=== PATIENT | female | born 1995 | race Caucasian/White ===

== ENCOUNTER 2017-02-03 07:53 | Inpatient (IN) | payer OTHER ==
[~2017-02-03] VITALS: Ht 162.6 cm; Wt 82.1 kg
[~2017-02-03 07:53] MED LIST: PREN1TAB80 PO; RINGERS SOLUTION,LACTATED 1,000 ML IV ONE
[2017-02-03] MEDS ORDERED: CITRIC ACID/SODIUM CITRATE 30 ML SOLUTION UDCUP PO ONE (08:00)
[2017-02-03] MEDS ORDERED: METOCLOPRAMIDE HCL 5 MG/ML 2 ML VIAL IVP ONE (08:00)
[2017-02-03 08:24] VITALS: BP 119/74
[2017-02-03 08:32] LABS: BASOPHILS % (AUTO) 0.2 % (0.0-2.0); EOSINOPHILS % (AUTO) 0.1 % (1.0-6.0); HEMOGLOBIN 13.7 g/dL (12.0-16.0); LYMPHOCYTES # (AUTO) 1.7 K/uL (1.0-4.8); LYMPHOCYTES % (AUTO) 14.9 % (22.0-44.0); MEAN CORPUSCULAR HGB CONC 33.4 G/dL (31.0-37.0); MEAN CORPUSCULAR VOLUME 96 fL (80-100); MONOCYTES # (AUTO) 0.6 K/uL (0.1-1.0); MONOCYTES % (AUTO) 5.1 % (2.0-9.0); NEUTROPHILS # (AUTO) 8.9 K/uL (1.8-7.7); NEUTROPHILS % (AUTO) 79.7 % (40.0-70.0); PLATELET COUNT (AUTO) 163 K/uL (150-450); RED BLOOD CELL COUNT(AUTO) 4.28 MIL/uL (4.00-5.20); RED CELL DISTRIBUTION WIDTH 12.8 % (11.5-14.5); WHITE BLOOD COUNT (AUTO) 11.2 K/uL (4.5-11.0)
[2017-02-03] MEDS ORDERED: CeFAZolin 2 GM/DEXTROSE 50 ML IV ONE (10:32)
[2017-02-03] MEDS ORDERED: MORPHINE SULFATE/PF 0.5 MG/ML 10 ML AMP ONE (10:33)
[2017-02-03] MEDS ORDERED: FentaNYL CITRATE-PF 100 MCG/2 ML VIAL ONE (10:33)
[2017-02-03] MEDS ORDERED: RINGERS SOLUTION,LACTATED 1,000 ML IV ONE (10:34)
[2017-02-03] MEDS ORDERED: ACETAMINOPHEN/CODEINE 300-30 MG TABLET PO PRN ×2 (13:00)
[2017-02-03] MEDS ORDERED: LANOLIN 7 GM OINTMENT TP PRN (13:00)
[2017-02-03] MEDS ORDERED: NALBUPHINE HCL 10 MG/ML VIAL IVP PRN ×3 (13:30)
[2017-02-03] MEDS ORDERED: DiphenhydrAMINE HCL 50 MG/ML VIAL IVP PRN ×2 (13:30)
[2017-02-03] MEDS ORDERED: ONDANSETRON HCL 4 MG/2 ML VIAL IVP PRN ×2 (13:30)
[2017-02-03] MEDS ORDERED: FentaNYL CITRATE-PF 100 MCG/2 ML VIAL IVP PRN ×4 (13:30)
[2017-02-03] MEDS ORDERED: ACETAMINOPHEN 1000 MG/ISO-OSM 100 ML IV PRN (13:30)
[2017-02-03] MEDS ORDERED: NALOXONE HCL 0.4 MG/ML VIAL IVP PRN (13:30)
[2017-02-03] MEDS ORDERED: ACETAMINOPHEN 1000 MG/ISO-OSM 100 ML IV ONE ×2 (13:30→13:37)
[2017-02-03] MEDS: DEXTROSE 5%-0.45% SODIUM CHL 1,000 ML IV SCH ×2 (16:41→20:57)
[2017-02-03] MEDS ORDERED: OXYGEN THERAPY IH SCH ×4 (20:00)
[2017-02-04] MEDS: DEXTROSE 5%-0.45% SODIUM CHL 1,000 ML IV SCH ×2 (00:57→05:47)
[2017-02-04] MEDS ORDERED: DEXTROSE 5%-0.45% SODIUM CHL 1,000 ML IV ONE (04:55)
[2017-02-04] MEDS: IBUPROFEN 800 MG TABLET PO SCH ×3 (05:49→17:50)
[2017-02-04] MEDS: MAGNESIUM HYDROXIDE SUSPENSION 30 ML UDCUP PO SCH ×2 (08:00→22:32)
[2017-02-05] MEDS: IBUPROFEN 800 MG TABLET PO SCH ×4 (00:14→17:54)
[2017-02-05] MEDS: MAGNESIUM HYDROXIDE SUSPENSION 30 ML UDCUP PO SCH (08:32)
[2017-02-06] MEDS: IBUPROFEN 800 MG TABLET PO SCH ×2 (00:02→06:03)
[2017-02-06] MEDS ORDERED: ACET1TAB12 PO (09:57)
[2017-02-06] MEDS ORDERED: DSS100 PO (09:58)
[2017-02-06] MEDS ORDERED: IBUP-1547 PO (09:58)
== END 2017-02-06 11:05 | disposition home or self-care (01) | DRG 766 ==
LOC: OBSVTOIN 07:53 → 4S 07:53
PROVIDERS: ADMIT Obstetrics & Gynecology; ATTEND Obstetrics & Gynecology
PROC: 10D00Z1 Extraction of Products of Conception, Low, Open Approach (ICD-10-PCS; principal; 2017-02-03)
DX: O69.81X0 Labor and delivery complicated by cord around neck, without compression, not applicable or unspecified (principal); Z3A.39 39 weeks gestation of pregnancy; Z37.0 Single live birth
CPT/HCPCS: 86850; 86900; 86901; 87081; J0131; J0690; J2274; J2300; J2765; J3010; J7120